=== PATIENT | female | born 1955 | race African-American/Black ===

== ENCOUNTER → 2017-09-27 16:55 | Outpatient (CLI) | payer OTHER, SELFPAY ==
--- NOTE | 2017-09-27 | MM_ITS ---
MM Dig screening mamm BI w/CAD CAD Screening COMPARISON: Digital mammograms with CAD 07/08/2016 and 06/25/2015 INDICATION: There is a history of breast cancer patient maternal aunt. There has been previous biopsy right breast for benign disease TECHNIQUE: Standard CC and MLO images were obtained. R2 CAD reviewed. FINDINGS: There is a diffusely dense and heterogenic parenchymal pattern ascending the sensitivity of mammography. There are multiple scattered benign-appearing calcifications in both breasts most typical of sclerosing adenosis slightly more numerous left breast and right. There is no suspicious lesion and there are no suspicious microcalcifications. IMPRESSION: Stable exam with no suspicious lesion seen BI-RADS Category: 2 Benign Finding(s) RECOMMENDED FOLLOW-UP: 1YR - 1 YEAR FOLLOW-UP (A letter has been sent to the patient regarding results of the study.)
== END ==
PROVIDERS: PCP Family Medicine; Visit Provider Nurse Practitioner Women's Health
DX: Z12.31 Encounter for screening mammogram for malignant neoplasm of breast (principal)
CPT/HCPCS: 77067

== ENCOUNTER → 2018-12-19 15:46 | Outpatient (CLI) | payer OTHER, BC, SELFPAY ==
--- NOTE | 2018-12-19 16:00 | MM_ITS ---
PROCEDURE: MM DIG SCREENING MAMM BI W/CAD CLINICAL INDICATION: SCREENING There is a history of breast cancer in the patient's maternal aunt. There has been a previous biopsy left breast for benign disease. COMPARISON: [facility] DIG MAMM-SCREEN JOSSE from 06/25/2015 [facility] DIG MAMM-SCREEN JOSSE W/CAD from 07/08/2016 [facility] MM Dig screening mamm BI w/CAD from 09/27/2017 TECHNIQUE: Standard CC and MLO images were obtained. R2 CAD reviewed. FINDINGS: Moderate diffuse heterogenic fibroglandular densities are seen throughout both breasts. There are numerous microcalcifications in each breast many of which appear to be typical of sclerosing adenosis. There is a biopsy clip left breast. There is no new or suspicious lesion in either breast and no suspicious microcalcifications. IMPRESSION: Moderate breast density with no suspicious BI-RAD Category: 2 Benign Finding(s) FOLLOW-UP: 1YR 1 Year Follow-up (A letter has been sent to the patient regarding results of the study.) Dictated by: Dr. Rneny Dong MD 12/21/2018 08:[address] Renny Dong MD in [place] 12/21/2018 08:54
== END ==
PROVIDERS: PCP Nurse Practitioner Women's Health; Visit Provider Nurse Practitioner Women's Health
DX: Z12.31 Encounter for screening mammogram for malignant neoplasm of breast (principal)
CPT/HCPCS: 77067

== ENCOUNTER 2020-10-23 17:05 | Emergency (ER) | payer MEDICARE, SELFPAY ==
[2020-10-23 17:06] VITALS: BP 150/91; PULSE 88; RESP 18; TEMP 36.9; O2SAT 97; BMI 41.1
--- NOTE | 2020-10-23 17:38 | HMH.EDGENADL ---
ED Disposition Clinical Impression: Left sided abdominal pain, Bowel habit changes Disposition: Home, Self-Care Condition on Discharge: Good Instructions: DI for Acute Abdominal Pain Additional Instructions: Additional instructions for ABDOMINAL PAIN: See your physician as soon as possible for further evaluation. Return immediately if worsening abdominal pain, vomiting, shortness of breath, fever, vomiting of blood or abdominal distention. Urine culture has been performed, results generally take 2 to 3 days. Follow-up the results of this test with your primary care provider within 2 to 3 days. Referrals: Provider,Referral, [Primary Care Provider] - - Critical Care Critical Care Time: No Attestation: On 10/23/20, the high probability of a clinically significant, sudden or life threatening deterioration of the following system(s) required my full and direct attention, intervention and personal management. The time I documented below is in addition to time spent performing reported procedures but includes the following listed in this critical care notation. Medical Decision Making - Caio Inquiry Pt receiving controlled substance: No Vital Signs: 10/23/20 17:06 10/23/20 18:23 Temperature 98.4 F Temperature Source Oral Pulse Rate 72 Pulse Rate [Right Radial] 88 Respiratory Rate 18 Blood Pressure 168/76 H Blood Pressure [Right Arm] 150/91 H Blood Pressure Mean [Right Arm] 110 Blood Pressure Source [Right Arm] Automatic Cuff Blood Pressure Position [Right Arm] Sitting 02 Sat by Pulse Oximetry 97 99 Oxygen Delivery Method Room Air - Lab Data Lab Results 10/23/20 17:22: WBC 8.3, RBC 4.60, Hgb 14.0, Hct 42.1, MCV 91.7, MCH 30.5, MCHC 33.3, RDW 13.4, Plt Count 253, MPV 7.7, Neut % (Auto) 47.5, Lymph % (Auto) 42.9, [place] % (Auto) 5.3, Eos % (Auto) 3.1, Baso % (Auto) 1.2, Neut # (Auto) 3.9, Lymph # (Auto) 3.6, [place] # (Auto) 0.4, Eos # (Auto) 0.3, Baso # (Auto) 0.1 10/23/20 17:22: Sodium 142, Potassium 3.8, Chloride 105, Carbon Dioxide 28, Anion Gap 12.8, BUN 17, Creatinine 0.70, Estimated Creat Clear 96, Estimated GFR 84, Est GFR ( Amer) 102, Glucose 98, Calcium 9.6, Total Bilirubin 0.5, AST 31, ALT 16, Alkaline Phosphatase 136 H, Total Protein 8.3 H, Albumin 4.8, Globulin 3.5 H, Albumin/Globulin Ratio 1.4, Amylase 58, Lipase 12 L 10/23/20 17:22: Urine Color [place], Urine Appearance Cloudy, Urine pH 6.0, Ur Specific [place] >= 1.030, Urine Protein Negative, Urine Glucose (UA) Negative, Urine Ketones Negative, Urine Blood Negative, Urine Nitrate Negative, Urine Bilirubin Negative, Urine Urobilinogen 1.0, Ur Leukocyte Esterase 1+ A, Urine RBC None, Urine WBC Occasional, Ur Squamous Epith Cells Occasional, Urine Bacteria Trace Result diagrams: 10/23/20 17:22 10/23/20 17:22 Orders (Tests/Meds): ED MEDICATIONS Discontinued Medications Generic Name Dose Route Start Last Admin Trade Name Freq PRN Reason Stop Dose Admin Iopamidol 75 ml 10/23/20 18:14 10/23/20 18:15 Iopamidol-370 (76%);100ml Bottle IV 10/23/20 18:15 75 ml ONCE ONE Administration Sodium Chloride 10 ml 10/23/20 18:14 10/23/20 18:15 Sodium Chloride 0.9% 10ml Syr (Rad Only) IV 10/23/20 18:15 10 ml ONCE ONE Administration ORDERS Category Date Time Status Urine Culture Stat Micro 10/23/20 17:22 Received - CT Data CT Scan: Abdomen, Pelvis Time Received: 18:[address] Reviewed: Yes: I have viewed the radiologist's interpretation Findings Narrative: PROCEDURE INFORMATION: Exam: CT Abdomen And Pelvis With Contrast Exam date and time: 10/23/20 05:40 PM Age: 65 years old Clinical indication: Abdominal pain; Generalized; Prior surgery; Surgery date: 6+ months; Surgery type: Partial hysterectomy; Patient HX: Diffuse abd pain, bowel issues TECHNIQUE: Imaging protocol: Computed tomography of the abdomen and pelvis with contrast. Radiation optimization: All CT scans at this facili
--- NOTE | 2020-10-23 17:40 | CT_ITS ---
PROCEDURE INFORMATION: Exam: CT Abdomen And Pelvis With Contrast Exam date and time: 10/23/20 05:40 PM Age: 65 years old Clinical indication: Abdominal pain; Generalized; Prior surgery; Surgery date: 6+ months; Surgery type: Partial hysterectomy; Patient HX: Diffuse abd pain, bowel issues TECHNIQUE: Imaging protocol: Computed tomography of the abdomen and pelvis with contrast. Radiation optimization: All CT scans at this facility use at least one of these dose optimization techniques: automated exposure control; mA and/or kV adjustment per patient size (includes targeted exams where dose is matched to clinical indication); or iterative reconstruction. Contrast material: ISOVUE; Contrast volume: 75 ml; Contrast route: IV; COMPARISON: CR CXR2V XR chest 2V 12/17/17 02:19 PM FINDINGS: Tubes, catheters and devices: None noted. Lungs: Lung bases appear clear. Heart: No significant coronary calcifications. No cardiomegaly. No significant pericardial effusion. Liver: Normal. No mass. Gallbladder and bile ducts: Normal. No calcified stones. No ductal dilation. Pancreas: Normal. No ductal dilation. Spleen: Normal. No splenomegaly. Adrenal glands: Normal. No mass. Kidneys and ureters: Normal. No hydronephrosis. Stomach and bowel: Unremarkable. No obstruction. No mucosal thickening. Appendix: Appendix is well visualized. No evidence of appendicitis. Intraperitoneal space: Unremarkable. No free air. No significant fluid collection. Retroperitoneal space: No significant retroperitoneal inflammatory changes are noted. Vasculature: Unremarkable. No abdominal aortic aneurysm. Lymph nodes: Unremarkable. No enlarged lymph nodes. Urinary bladder: Unremarkable as visualized. Reproductive: Unremarkable as visualized. Bones/joints: Right hip arthroplasty. Severe osteoarthritic changes left hip. Severely degenerated disc at L1-L2. Prior fusion L2-L3. Vacuum disc L3-L4 and L4-L5. No acute fracture. Soft tissues: Unremarkable. IMPRESSION: 1. Right hip arthroplasty. Severe osteoarthritic changes left hip. 2. Previous fusion L2-L3. 3. Vacuum discs at L1-L2, L3-L4, and L4-L5.
[2020-10-23 17:42] LABS: Microscopic, Urine URINE MICROSCOPIC (MICROSCOPIC)
[2020-10-23 17:45] LABS: Appearance,Urine CLOUDY (Clear); Basophils # 0.1 K/mm3 (0-0.2); Basophils % 1.2 % (0.1-2.0); Bilirubin,Urine Negative (Negative); Blood, Urine Negative (Negative); Color,Urine AMBER (Yellow); Eosinophils # 0.3 K/mm3 (0.0-0.4); Eosinophils % 3.1 % (0.1-12.0); Glucose,Urine (UA) Negative (Negative); Hematocrit 42.1 % (37.0-47.0); Ketones,Urine Negative (Negative); Leukocyte Esterase,Urine 1+ (Negative); Lymphocytes # 3.6 K/mm3 (0.7-4.5); Lymphocytes % 42.9 % (10-50); Mean Corpuscular HGB Conc 33.3 g/dL (31.8-35.4); Mean Corpuscular Hemoglobin 30.5 pg (27.0-31.2); Mean Corpuscular Volume 91.7 fl (81-99); Mean Platelet Volume 7.7 fl (7.4-10.4); Monocytes # 0.4 K/mm3 (0.1-1.0); Monocytes % 5.3 % (1.7-9.3); Neutrophils # 3.9 K/mm3 (1.8-7.8); Neutrophils % 47.5 % (37.0-80.0); Nitrate,Urine Negative (Negative); Platelet Count 253 K/mm3 (142-424); Protein,Urine Negative (Negative); Red Cell Distribution Width 13.4 % (11.5-17.5); Specific Gravity, Urine >= 1.030 (1.005-1.030); White Blood Count 8.3 K/mm3 (4.8-10.8)
[2020-10-23 17:47] LABS: Chloride 105 mmol/L (98-107); Sodium 142 mmol/L (136-145)
[2020-10-23 17:48] LABS: Potassium 3.8 mmoL/L (3.5-5.1)
[2020-10-23 17:50] LABS: Alanine Aminotransferase 16 U/L (12-78); Amylase 58 U/L (30-110); Anion Gap 12.8 mEq/L (5-15); Aspartate Amino Transferase 31 U/L (14-36); Blood Urea Nitrogen 17 mg/dl (7-17); Carbon Dioxide 28 mmol/L (22.0-30.0); Creatinine Clearance Estimated 96 mL/min (50-200); Estimated Glomerular Filt Rate 84 ml/min (>60); GFR (African American) 102 ML/MIN (>60)
[2020-10-23 17:51] LABS: Albumin Level 4.8 g/dl (3.5-5.0); Albumin/Globulin Ratio 1.4 (1.1-1.8); Alkaline Phosphatase 136 U/L (38-126); Bilirubin,Total 0.5 mg/dl (0.2-1.3); Calcium 9.6 mg/dl (8.4-10.2); Globulin 3.5 g/dL (1.3-3.2); Glucose 98 mg/dl (74-100); Lipase 12 U/L (23-300); Total Protein,Serum 8.3 g/dl (6.3-8.2)
[2020-10-23 17:56] LABS: Bacteria,Urine Trace /lpf; Squamous Epithelial Cell,Urine Occasional #/hpf (0-5); WBC,Urine Occasional #/hpf (0-3)
[2020-10-23 18:23] VITALS: BP 168/76; PULSE 72; O2SAT 99
[2020-10-23 19:14] VITALS: BP 154/74; PULSE 74; RESP 16; TEMP 36.9; O2SAT 98
== END 2020-10-23 19:17 | disposition home or self-care (01) ==
PROVIDERS: Emergency Provider Emergency Medicine
DX: R10.32 Left lower quadrant pain (principal); R10.12 Left upper quadrant pain; Z96.641 Presence of right artificial hip joint
CPT/HCPCS: 74177; 80053; 81001; 82150; 83690; 85025; 87086; 99283; Q9967

== ENCOUNTER 2020-12-10 14:31 | Emergency (ER) | payer MEDICARE, SELFPAY ==
[2020-12-10 14:35] VITALS: BP 149/89; PULSE 94; RESP 18; TEMP 37; O2SAT 98; BMI 41.1
--- NOTE | 2020-12-10 14:59 | HMH.EDUTC ---
[facility] [place] Disposition Clinical Impression: Sinusitis Qualifiers: Sinusitis location: unspecified location Chronicity: unspecified Qualified Code(s): J32.9 - Chronic sinusitis, unspecified Disposition: Home, Self-Care Condition on Discharge: Good Instructions: Sinusitis, DI for Sinusitis Additional Instructions: *Monitor Temp, Over the counter Motrin or Tylenol as directed/as needed Tylenol every 4 hours and Motrin every 6 hours (as long as your family doctor has told you that you can take it) for fever or pain. and straight to ER if unable to lower temp less than 101.0 after medication given *Warm salt water gargles may help to soothe the throat *Throat Lozenges *Warm fluids like tea with honey may help to soothe the throat *Sleep elevated *Humidifier/Vaporizer Take medication as prescribed Return if needed Straight to ER if any life threatening symptoms Follow up IMMEDIATELY for new or worsening symptoms or no Noticeable improvement over the next 48-72 hours. 911 for difficulty breathing or swallowing Prescriptions: Amoxicillin/Potassium Clav [Augmentin 875-125 Tablet] 1 tab PO Q12H 7 Days #14 tab Transmission Status: Pending to [id number] predniSONE [Deltasone 10mg tablet] 10 mg PO BID 5 Days #10 tab Transmission Status: Pending to [id number] Referrals: Provider,Referral, MD [Primary Care Provider] - As needed Time of Disposition: 15:18 Medical Decision Making - Caio Inquiry Pt receiving controlled substance: No Caio was queried for this patient: No Vital Signs: 12/10/20 14:35 Temperature 98.6 F Temperature Source Oral Pulse Rate [Right Brachial] 94 H Respiratory Rate 18 Blood Pressure [Right Arm] 149/89 H Blood Pressure Mean [Right Arm] 109 Blood Pressure Source [Right Arm] Automatic Cuff Blood Pressure Position [Right Arm] Sitting 02 Sat by Pulse Oximetry 98 Oxygen Delivery Method Room Air Medical Decision Narrative: Patient states that she has taken augmentin and prednisone without complications or reactions [facility] [place] HPI - General Stated complaint: possible sinus infection Time Seen by Provider: 12/10/20 14:59 Mode of Arrival: Ambulatory Source of Information: Patient Limitations: No Limitations Description of Symptoms (Recalled from Triage Doc. by RN): PATIENT C/O RUNNY NOSE AND WATERY EYES X 1 WEEK HEENT Symptoms (Recalled from RN notes): Yes Resp Symptoms (Recalled from RN notes): No Skin Symptoms (Recalled from RN notes): No MS Symptoms (Recalled from RN notes): No Functional Status (Recalled from RN notes): WNL - History of Present Illness Provider Complaint: Patient states that she thinks she may have a sinus infection States that she has been having sinus congestion and pressure for over a week with watery eyes and over all not feeling well so she came in today to get checked when she wasnt feeling any better - Related Data Home Medications Medication Instructions Recorded Confirmed Albuterol Sulfate [Proair Hfa 2 puffs IH Q6H PRN 10/26/17 12/17/17 90mcg/puff Inh] Budesonide/Formoterol Fumarate 2 inh IH BID 10/26/17 12/17/17 [Symbicort 160-4.5 Mcg Inhaler] Fluticasone Propionate [Flovent 2 spr IH DAILY 10/26/17 12/17/17 Diskus] Gabapentin [Gabapentin 300mg Cap] 300 mg PO BID 10/26/17 12/17/17 Indomethacin 25 mg PO TID 10/26/17 12/17/17 Miconazole Nitrate [Athlete's Foot] 71 gm TP DAILY 10/26/17 12/17/17 Morphine Sulfate [Arymo ER] 15 mg PO BID 10/26/17 12/17/17 Multivitamin [Multi-Vitamin Plain] 1 each PO DAILY 10/26/17 12/17/17 Omeprazole [Omeprazole 20mg 20 mg PO BID 10/26/17 12/17/17 Capsule] Sertraline HCl [Zoloft 50mg tablet] 50 mg PO DAILY 10/26/17 12/17/17 atenoloL [Atenolol 50mg Tab] 50 mg PO DAILY 10/26/17 12/17/17 lidocaine HCL [Lidocaine 2% jelly 1 applic TOPICAL DAILY 10/26/17 12/17/17 5mL tube] Previous Rx's Medication Instructions Recorded Benzonatate [Tessalon Perle 100mg 100 mg PO TID #30 cap 12/10/17 Cap]
[2020-12-10 15:25] VITALS: BP 149/89; PULSE 94; RESP 18; TEMP 37; O2SAT 98
== END 2020-12-10 15:30 | disposition home or self-care (01) ==
PROVIDERS: Emergency Provider Nurse Practitioner
DX: J32.9 Chronic sinusitis, unspecified (principal); Z96.641 Presence of right artificial hip joint; Z79.899 Other long term (current) drug therapy
CPT/HCPCS: G0463; 99202

== ENCOUNTER → 2021-02-10 12:59 | Outpatient (CLI) | payer MEDICARE, SELFPAY ==
--- NOTE | 2021-02-10 13:03 | MM_ITS ---
PROCEDURE INFORMATION: Exam: MG Bilateral Screening 3D Mammography Exam date and time: 02/10/2021 1:03 PM Age: 65 years old Clinical indication: Encounter for screening mammogram for malignant neoplasm of breast . Family history of breast carcinoma. TECHNIQUE: Imaging protocol: Bilateral screening tomosynthesis and 2D mammography including computer-aided detection (CAD) when performed. COMPARISON: 1. MG MM DIG SCREENING MAMM BI W/CAD 12/19/2018 4:34 PM 2. MG [facility] MM Dig screening mamm BI w/CAD 09/27/2017 5:05 PM 3. MG [facility] DIG MAMM-SCREEN JOSSE W/CAD 07/08/2016 4:41 PM FINDINGS: MAMMOGRAPHY: Breast composition: The breasts are heterogeneously dense, which may obscure small masses. Mass: No suspicious masses. Architectural distortion: No suspicious distortion. Calcifications: No suspicious calcifications. Asymmetric density: None. Skin thickening: None. Axillary adenopathy: None. IMPRESSION: No mammographic evidence of malignancy. Annual screening is recommended unless otherwise clinically indicated. ASSESSMENT: BI-RADS Category 1: Negative
== END ==
PROVIDERS: PCP Nurse Practitioner Women's Health; Visit Provider Nurse Practitioner Women's Health
DX: Z12.31 Encounter for screening mammogram for malignant neoplasm of breast (principal)
CPT/HCPCS: 77063; 77067

== ENCOUNTER 2022-02-21 11:00 | Emergency (ER) | payer MEDICARE, OTHER, SELFPAY ==
[2022-02-21 11:25] VITALS: BP 154/88; PULSE 91; RESP 16; TEMP 36.7; O2SAT 95; BMI 44.6
--- NOTE | 2022-02-21 11:29 | EXP.UTC ---
Discharge Plan Disposition Patient Disposition: Home, Self-Care Condition: Good Prescriptions Prescriptions: New amoxicillin-pot clavulanate 875-125 mg Tablet 1 tab PO Q12H 7 Days Qty: 14 0RF No Action diltiazem HCl 240 mg capsule,extended release 24hr 240 mg PO DAILY Label Comments: TAKE 1 CAPSULE BY MOUTH ONCE DAILY hydrochlorothiazide 25 mg Tablet 25 mg PO DAILY Flovent Diskus 50 MCG blister with device 2 spr inhalation DAILY indomethacin 25 MG capsule 25 mg PO TID gabapentin 300 MG capsule 300 mg PO BID omeprazole 20 MG capsule,delayed release(DR/EC) 20 mg PO BID albuterol sulfate [ProAir HFA] 8.5 GM HFA aerosol inhaler 2 puffs inhalation Q6H PRN (Reason: Shortness Of Breath) multivitamin with folic acid [Tab-A-Liang] 1 EACH tablet 1 ea PO DAILY Arymo ER 15 MG tablet,oral only,extnd release 15 mg PO BID Referrals Follow up/Referrals: Provider,Referral, MD [Primary Care Provider] - See instructions Activity Restrictions/Add. Instructions Additional Instructions/Restrictions: *Monitor Temp, Over the counter Motrin or Tylenol as directed/as needed Tylenol every 4 hours and Motrin every 6 hours (as long as your family doctor has told you that you can take it) for fever or pain. and straight to ER if unable to lower temp less than 101.0 after medication given *Warm salt water gargles may help to soothe the throat *Throat Lozenges? *Warm fluids like tea with honey may help to soothe the throat? *Sleep elevated *Humidifier/Vaporizer Take medication as prescribed Follow up IMMEDIATELY for new or worsening symptoms or no Noticeable improvement over the next 48-72 hours. 911 for difficulty breathing or swallowing Clinical Impressions Clinical Impression: Sinusitis Stand Alone Forms Stand Alone Forms: Work/School Release Instructions Patient Instructions: DI for Sinusitis, Sinusitis Discharge ED Provider: Michelle Mcneal [facility] General Stated complaint: head congestion Mode of Arrival: Ambulatory Source of Information: Patient Limitations: No Limitations Time Seen by Provider: 02/21/22 11:29 Description of Symptoms (Recalled from Triage Doc. by RN): pt comes in with c/o head congestion and cough since tuesday. HEENT Symptoms (Recalled from RN notes): Yes Resp Symptoms (Recalled from RN notes): Yes Skin Symptoms (Recalled from RN notes): No MS Symptoms (Recalled from RN notes): No Functional Status (Recalled from RN notes): n/a History of Present Illness Provider Complaint: Patient states that she has been having sinus congestion and pressure along with cough since Tuesday States that she has been feeling like her head is all congested and the discharge is thick States that it is draining in the back of her throat and making her cough State that she feels like she may have a bad sinus infection Related Data Home Medications Medication Instructions Recorded Confirmed albuterol sulfate 90 mcg/actuation 2 puffs inhalation Q6H PRN 10/26/17 02/21/22 aerosol inhaler (ProAir HFA) Shortness Of Breath fluticasone propionate 50 2 spr inhalation DAILY ALLERGIES 10/26/17 02/21/22 mcg/actuation blister powder for inhalation (Flovent Diskus) gabapentin 300 mg capsule 300 mg PO BID Pain 10/26/17 02/21/22 indomethacin 25 mg capsule 25 mg PO TID Arthritis 10/26/17 02/21/22 morphine 15 mg tablet, crush 15 mg PO BID Pain 10/26/17 02/21/22 resistant, extended release (Arymo ER) multivitamin with folic acid 400 1 ea PO DAILY Supplement 10/26/17 02/21/22 mcg tablet (Tab-A-Liang) omeprazole 20 mg capsule,delayed 20 mg PO BID GERD 10/26/17 02/21/22 release diltiazem HCl 240 mg 240 mg PO DAILY High blood pressure 02/21/22 02/21/22 capsule,extended release 24 hr hydrochlorothiazide 25 mg tablet 25 mg PO DAILY High blood pressure 02/21/22 02/21/22 Previous Rx's Medication Instructions Recorded amoxicillin
[2022-02-21 11:51] VITALS: BP 154/88; PULSE 91; RESP 16; TEMP 36.7
== END 2022-02-21 11:52 | disposition home or self-care (01) ==
PROVIDERS: Emergency Provider Nurse Practitioner
DX: J32.9 Chronic sinusitis, unspecified (principal)
CPT/HCPCS: 99212; G0463

== ENCOUNTER 2022-03-10 12:24 | Emergency (ER) | payer MEDICARE, OTHER, SELFPAY ==
--- NOTE | 2022-03-10 12:35 | EXP.UTC ---
Discharge Plan Disposition Patient Disposition: Home, Self-Care Condition: Good Prescriptions Prescriptions: New benzonatate [benzonatate] 100 mg capsule 100 mg PO TIDP PRN (Reason: Cough) Qty: 30 0RF methylprednisolone 4 mg Tablets,Dose Pack 4 mg PO DIRECTED Qty: 21 0RF cefdinir 300 mg capsule 300 mg PO BID Qty: 20 0RF No Action diltiazem HCl 240 mg capsule,extended release 24hr 240 mg PO DAILY Label Comments: TAKE 1 CAPSULE BY MOUTH ONCE DAILY hydrochlorothiazide 25 mg Tablet 25 mg PO DAILY amoxicillin-pot clavulanate 875-125 mg Tablet 1 tab PO Q12H 7 Days Qty: 14 0RF Flovent Diskus 50 MCG blister with device 2 spr inhalation DAILY indomethacin 25 MG capsule 25 mg PO TID gabapentin 300 MG capsule 300 mg PO BID omeprazole 20 MG capsule,delayed release(DR/EC) 20 mg PO BID albuterol sulfate [ProAir HFA] 8.5 GM HFA aerosol inhaler 2 puffs inhalation Q6H PRN (Reason: Shortness Of Breath) multivitamin with folic acid [Tab-A-Liang] 1 EACH tablet 1 ea PO DAILY Arymo ER 15 MG tablet,oral only,extnd release 15 mg PO BID Referrals Follow up/Referrals: Provider,Referral, MD [Primary Care Provider] - See instructions Activity Restrictions/Add. Instructions Additional Instructions/Restrictions: Drink plenty of fluids. Take tylenol or ibuprofen for pain or fever. Take the medications as directed. Follow up with your regular doctor. GO TO THE ER FOR ANY WORSENING SYMPTOMS Clinical Impressions Clinical Impression: Acute bronchitis, Sinusitis Instructions Patient Instructions: DI for Sinusitis, DI for Acute Bronchitis Discharge ED Provider: Nghia Sullivan [facility] General Stated complaint: drainage, cough Time Seen by Provider: 03/10/22 12:27 History of Present Illness Provider Complaint: She states that for the past 1 week she has had sinus congestion, productive cough, and malaise. Related Data Home Medications Medication Instructions Recorded Confirmed albuterol sulfate 90 mcg/actuation 2 puffs inhalation Q6H PRN 10/26/17 02/21/22 aerosol inhaler (ProAir HFA) Shortness Of Breath fluticasone propionate 50 2 spr inhalation DAILY ALLERGIES 10/26/17 02/21/22 mcg/actuation blister powder for inhalation (Flovent Diskus) gabapentin 300 mg capsule 300 mg PO BID Pain 10/26/17 02/21/22 indomethacin 25 mg capsule 25 mg PO TID Arthritis 10/26/17 02/21/22 morphine 15 mg tablet, crush 15 mg PO BID Pain 10/26/17 02/21/22 resistant, extended release (Arymo ER) multivitamin with folic acid 400 1 ea PO DAILY Supplement 10/26/17 02/21/22 mcg tablet (Tab-A-Liang) omeprazole 20 mg capsule,delayed 20 mg PO BID GERD 10/26/17 02/21/22 release diltiazem HCl 240 mg 240 mg PO DAILY High blood pressure 02/21/22 02/21/22 capsule,extended release 24 hr hydrochlorothiazide 25 mg tablet 25 mg PO DAILY High blood pressure 02/21/22 02/21/22 Previous Rx's Medication Instructions Recorded amoxicillin 875 mg-potassium 1 tab PO Q12H 7 days #14 tabs 02/21/22 clavulanate 125 mg tablet benzonatate 100 mg capsule 100 mg PO TIDP PRN Cough #30 caps 03/10/22 cefdinir 300 mg capsule 300 mg PO BID #20 caps 03/10/22 methylprednisolone 4 mg tablets in 4 mg PO DIRECTED #21 tabs 03/10/22 a dose pack Allergies Allergy/AdvReac Type Severity Reaction Status Date / Time No Known Allergies Allergy Verified 03/10/22 12:55 [facility] Disclaimer: The information contained in this section may have been updated after the patient was seen, as this information can be updated by other users. Social History Smoking Status: Never smoker alcohol intake: never current occupational status: retired Travel in the last 8 weeks: None ROS Obtained: Yes All systems reviewed & no additional complaints except as documented Constitutional Constitutional: Reports poor
[2022-03-10 12:45] VITALS: BP 154/84; RESP 19; TEMP 36.9; O2SAT 94; BMI 44.6
[2022-03-10 13:26] VITALS: BP 154/84; PULSE 86; RESP 19; TEMP 36.9; O2SAT 94
== END 2022-03-10 13:26 | disposition home or self-care (01) ==
PROVIDERS: Emergency Provider Nurse Practitioner Family
DX: J20.9 Acute bronchitis, unspecified (principal); J32.9 Chronic sinusitis, unspecified
CPT/HCPCS: 99212; G0463

== ENCOUNTER 2022-09-13 14:28 | Emergency (ER) | payer MEDICARE, OTHER, SELFPAY ==
[2022-09-13 14:29] VITALS: BP 162/94; PULSE 93; RESP 18; TEMP 36.6; O2SAT 95; BMI 41.8
--- NOTE | 2022-09-13 14:49 | EXP.UTC ---
Discharge Plan Disposition Patient Disposition: Home, Self-Care Condition: Good Prescriptions Prescriptions: New amoxicillin [amoxicillin] 875 mg tablet 875 mg PO Q12H Qty: 20 0RF methylprednisolone 4 mg Tablets,Dose Pack 4 mg PO DIRECTED Qty: 21 0RF ondansetron 4 mg Tablet,Disintegrating 4 mg PO Q8H PRN (Reason: Nausea) Qty: 12 0RF No Action diltiazem HCl 240 mg capsule,extended release 24hr 240 mg PO DAILY Patient Comments: TAKE 1 CAPSULE BY MOUTH ONCE DAILY hydrochlorothiazide 25 mg Tablet 25 mg PO DAILY amoxicillin-pot clavulanate 875-125 mg Tablet 1 tab PO Q12H 7 Days Qty: 14 0RF Flovent Diskus 50 MCG blister with device 2 spr inhalation DAILY indomethacin 25 MG capsule 25 mg PO TID gabapentin 300 MG capsule 300 mg PO BID omeprazole 20 MG capsule,delayed release(DR/EC) 20 mg PO BID albuterol sulfate [ProAir HFA] 8.5 GM HFA aerosol inhaler 2 puffs inhalation Q6H PRN (Reason: Shortness Of Breath) multivitamin with folic acid [Tab-A-Liang] 1 EACH tablet 1 ea PO DAILY Arymo ER 15 MG tablet,oral only,extnd release 15 mg PO BID benzonatate [benzonatate] 100 mg capsule 100 mg PO TIDP PRN (Reason: Cough) Qty: 30 0RF methylprednisolone 4 mg Tablets,Dose Pack 4 mg PO DIRECTED Qty: 21 0RF cefdinir 300 mg capsule 300 mg PO BID Qty: 20 0RF Referrals Follow up/Referrals: Provider,Referral, MD [Primary Care Provider] - See instructions Clinical Impressions Clinical Impression: Sinusitis Instructions Patient Instructions: Sinusitis, DI for Sinusitis Discharge ED Provider: Nghia Sullivan [facility] [place] HPI General Stated complaint: congestion, h/a Mode of Arrival: Ambulatory Source of Information: Patient Limitations: No Limitations Time Seen by Provider: 09/13/22 14:49 Description of Symptoms (Recalled from Triage Doc. by RN): Patient reports possible sinus infection and diarrhea since Tuesday. HEENT Symptoms (Recalled from RN notes): Yes Resp Symptoms (Recalled from RN notes): No Skin Symptoms (Recalled from RN notes): No MS Symptoms (Recalled from RN notes): No Functional Status (Recalled from RN notes): wnl History of Present Illness Provider Complaint: She states that for the past 5 days she has had sinus congestion, scratchy sore throat and diarrhea. Related Data Home Medications Medication Instructions Recorded Confirmed albuterol sulfate 90 mcg/actuation 2 puffs inhalation Q6H PRN 10/26/17 02/21/22 aerosol inhaler (ProAir HFA) Shortness Of Breath fluticasone propionate 50 2 spr inhalation DAILY ALLERGIES 10/26/17 02/21/22 mcg/actuation blister powder for inhalation (Flovent Diskus) gabapentin 300 mg capsule 300 mg PO BID Pain 10/26/17 02/21/22 indomethacin 25 mg capsule 25 mg PO TID Arthritis 10/26/17 02/21/22 morphine 15 mg tablet, crush 15 mg PO BID Pain 10/26/17 02/21/22 resistant, extended release (Arymo ER) multivitamin with folic acid 400 1 ea PO DAILY Supplement 10/26/17 02/21/22 mcg tablet (Tab-A-Liang) omeprazole 20 mg capsule,delayed 20 mg PO BID GERD 10/26/17 02/21/22 release diltiazem HCl 240 mg 240 mg PO DAILY High blood pressure 02/21/22 02/21/22 capsule,extended release 24 hr hydrochlorothiazide 25 mg tablet 25 mg PO DAILY High blood pressure 02/21/22 02/21/22 Previous Rx's Medication Instructions Recorded amoxicillin 875 mg-potassium 1 tab PO Q12H 7 days #14 tabs 02/21/22 clavulanate 125 mg tablet benzonatate 100 mg capsule 100 mg PO TIDP PRN Cough #30 caps 03/10/22 cefdinir 300 mg capsule 300 mg PO BID #20 caps 03/10/22 methylprednisolone 4 mg tablets in 4 mg PO DIRECTED #21 tabs 03/10/22 a dose pack amoxicillin 875 mg tablet 875 mg PO Q12H #20 tabs 09/13/22 methylprednisolone 4 mg tablets in 4 mg PO DIRECTED #21 tabs 09/13/22 a dose pack ondansetron 4 mg disintegrating 4 mg PO Q8H PRN Nausea #12 tabs 09/13/22 tablet Allergies Allergy/A
[2022-09-13 15:14] VITALS: BP 162/94; PULSE 93; RESP 18; TEMP 36.6; O2SAT 95
== END 2022-09-13 15:15 | disposition home or self-care (01) ==
PROVIDERS: Emergency Provider Nurse Practitioner Family
DX: J01.90 Acute sinusitis, unspecified (principal); R19.7 Diarrhea, unspecified
CPT/HCPCS: 99212; 99214; G0463

== ENCOUNTER 2022-12-15 13:05 | Emergency (ER) | payer MEDICARE, OTHER, SELFPAY ==
[2022-12-15 13:10] VITALS: BP 159/77; PULSE 87; RESP 18; TEMP 36.7; O2SAT 97; BMI 43.9
[2022-12-15 13:42] LABS: UTC Influenza A Antigen Negative (Negative)
[2022-12-15 13:43] LABS: UTC Influenza B Antigen Negative (Negative)
--- NOTE | 2022-12-15 13:45 | EXP.UTC ---
Discharge Plan Disposition Patient Disposition: Home, Self-Care Condition: Good Prescriptions Prescriptions: New cephalexin [cephalexin] 500 mg tablet 500 mg PO BID 7 Days Qty: 14 0RF No Action diltiazem HCl 240 mg capsule,extended release 24hr 240 mg PO DAILY Patient Comments: TAKE 1 CAPSULE BY MOUTH ONCE DAILY hydrochlorothiazide 25 mg Tablet 25 mg PO DAILY amoxicillin-pot clavulanate 875-125 mg Tablet 1 tab PO Q12H 7 Days Qty: 14 0RF amoxicillin [amoxicillin] 875 mg tablet 875 mg PO Q12H Qty: 20 0RF methylprednisolone 4 mg Tablets,Dose Pack 4 mg PO DIRECTED Qty: 21 0RF ondansetron 4 mg Tablet,Disintegrating 4 mg PO Q8H PRN (Reason: Nausea) Qty: 12 0RF Flovent Diskus 50 MCG blister with device 2 spr inhalation DAILY indomethacin 25 MG capsule 25 mg PO TID gabapentin 300 MG capsule 300 mg PO BID omeprazole 20 MG capsule,delayed release(DR/EC) 20 mg PO BID albuterol sulfate [ProAir HFA] 8.5 GM HFA aerosol inhaler 2 puffs inhalation Q6H PRN (Reason: Shortness Of Breath) multivitamin with folic acid [Tab-A-Liang] 1 EACH tablet 1 ea PO DAILY Arymo ER 15 MG tablet,oral only,extnd release 15 mg PO BID benzonatate [benzonatate] 100 mg capsule 100 mg PO TIDP PRN (Reason: Cough) Qty: 30 0RF methylprednisolone 4 mg Tablets,Dose Pack 4 mg PO DIRECTED Qty: 21 0RF cefdinir 300 mg capsule 300 mg PO BID Qty: 20 0RF Referrals Follow up/Referrals: Provider,Referral, MD [Primary Care Provider] - See instructions Activity Restrictions/Add. Instructions Additional Instructions/Restrictions: Monitor temperature. Seek treatment if fever develops. Follow-up immediately if new or worse symptoms worsen or no noticeable improvement over 48 hours. Increase fluids such as water, Gatorade, Powerade, juice or Pedialyte with limited formula/dietary in children No food is okay as long as you are drinking. Once ready to eat start bland such as bananas, rice, applesauce, toast. Contagious until no diarrhea, vomiting, fever times 48 hours without medication Avoid antidiarrheals unless told otherwise. Best to let the virus run its course. Follow-up immediately for new or worsening symptoms or no noticeable improvement over the next 48 hours. Clinical Impressions Clinical Impression: Acute UTI Diarrhea Qualifiers: Diarrhea type: unspecified type Qualified Code(s): R19.7 - Diarrhea, unspecified Instructions Patient Instructions: Diarrhea [facility]charge [facility] [place] General Stated complaint: dizzy, diarrhea and vomiting Mode of Arrival: Ambulatory Source of Information: Patient Limitations: No Limitations Time Seen by Provider: 12/15/22 13:45 Description of Symptoms (Recalled from Triage Doc. by RN): chills, diarrhea, vomiting, and stomach cramps HEENT Symptoms (Recalled from RN notes): Yes Resp Symptoms (Recalled from RN notes): No Skin Symptoms (Recalled from RN notes): No MS Symptoms (Recalled from RN notes): No Functional Status (Recalled from RN notes): n/a History of Present Illness Provider Complaint: 67 yr old female presents for nausea,vomiting,diarrhea since tuesday. no abd pain, pt states she felt fine until she went to a retreat this weekend and has not felt well since Related Data Home Medications Medication Instructions Recorded Confirmed albuterol sulfate 90 mcg/actuation 2 puffs inhalation Q6H PRN 10/26/17 02/21/22 aerosol inhaler (ProAir HFA) Shortness Of Breath fluticasone propionate 50 2 spr inhalation DAILY ALLERGIES 10/26/17 02/21/22 mcg/actuation blister powder for inhalation (Flovent Diskus) gabapentin 300 mg capsule 300 mg PO BID Pain 10/26/17 02/21/22 indomethacin 25 mg capsule 25 mg PO TID Arthritis 10/26/17 02/21/22 morphine 15 mg tablet, crush 15 mg PO BID Pain 10/26/17 02/21/22 resistant, extended release (Arymo ER) multivitamin with folic acid 40
[2022-12-15 14:50] LABS: Microscopic, Urine URINE MICROSCOPIC (MICROSCOPIC)
[2022-12-15 15:31] LABS: Appearance,Urine CLEAR (Clear); Blood, Urine Negative (Negative); Color,Urine YELLOW (Yellow); Glucose,Urine (UA) Negative (Negative); Ketones,Urine 2+ (Negative); Leukocyte Esterase,Urine Negative (Negative); Nitrate,Urine Negative (Negative); Protein,Urine 1+ (Negative)
[2022-12-15 15:32] LABS: Bilirubin,Urine 1+ (Negative)
[2022-12-15 15:37] LABS: Bacteria,Urine 2+ /lpf; Mucus,Urine Trace /lpf
[2022-12-15 15:38] LABS: Yeast,Urine Occasional /lpf
[2022-12-15 15:46] VITALS: BP 159/77; PULSE 87; RESP 18; TEMP 36.7; O2SAT 97
== END 2022-12-15 15:46 | disposition home or self-care (01) ==
PROVIDERS: Emergency Provider Nurse Practitioner Family
DX: N39.0 Urinary tract infection, site not specified (principal); R19.7 Diarrhea, unspecified; R11.2 Nausea with vomiting, unspecified
CPT/HCPCS: 81001; 87086; 87635; 87804; 99212; 99214; G0463

== ENCOUNTER 2023-06-16 15:14 | Emergency (ER) | payer MEDICARE, OTHER, SELFPAY ==
[2023-06-16 15:30] VITALS: BP 149/72; PULSE 84; RESP 19; TEMP 36.7; O2SAT 97; BMI 44.2
--- NOTE | 2023-06-16 15:47 | ED_ITS ---
Discharge Plan Disposition Patient Disposition: Home, Self-Care Condition: Good Prescriptions Prescriptions: New promethazine-DM 6.25-15 mg/5 mL Syrup 5 ml PO Q6H PRN (Reason: Cough) Qty: 240 0RF azithromycin [Zithromax] 250 mg tablet 250 mg PO UD DOSE PK Qty: 6 0RF Rx Instructions: Take two (2) tablets today, then one (1) tablet days #2 thru #5 methylprednisolone 4 mg Tablets,Dose Pack 4 mg PO DIRECTED 6 Days Qty: 21 0RF Rx Instructions: Take 1 pack as directed for 6 days guaifenesin [Mucinex] 600 mg tablet extended release 12hr 600 - 1,200 mg PO BIDP PRN (Reason: Congestion) Qty: 30 0RF No Action diltiazem HCl 240 mg capsule,extended release 24hr 240 mg PO DAILY Patient Comments: TAKE 1 CAPSULE BY MOUTH ONCE DAILY hydrochlorothiazide 25 mg Tablet 25 mg PO DAILY amoxicillin-pot clavulanate 875-125 mg Tablet 1 tab PO Q12H 7 Days Qty: 14 0RF amoxicillin [amoxicillin] 875 mg tablet 875 mg PO Q12H Qty: 20 0RF methylprednisolone 4 mg Tablets,Dose Pack 4 mg PO DIRECTED Qty: 21 0RF ondansetron 4 mg Tablet,Disintegrating 4 mg PO Q8H PRN (Reason: Nausea) Qty: 12 0RF cephalexin [cephalexin] 500 mg tablet 500 mg PO BID 7 Days Qty: 14 0RF Flovent Diskus 50 MCG blister with device 2 spr inhalation DAILY indomethacin 25 MG capsule 25 mg PO TID gabapentin 300 MG capsule 300 mg PO BID omeprazole 20 MG capsule,delayed release(DR/EC) 20 mg PO BID albuterol sulfate [ProAir HFA] 8.5 GM HFA aerosol inhaler 2 puffs inhalation Q6H PRN (Reason: Shortness Of Breath) multivitamin with folic acid [Tab-A-Liang] 1 EACH tablet 1 ea PO DAILY Arymo ER 15 MG tablet,oral only,extnd release 15 mg PO BID benzonatate [benzonatate] 100 mg capsule 100 mg PO TIDP PRN (Reason: Cough) Qty: 30 0RF methylprednisolone 4 mg Tablets,Dose Pack 4 mg PO DIRECTED Qty: 21 0RF cefdinir 300 mg capsule 300 mg PO BID Qty: 20 0RF Referrals Follow up/Referrals: Provider,Referral, MD [Primary Care Provider] - See instructions Activity Restrictions/Add. Instructions Additional Instructions/Restrictions: Drink plenty of fluids. Take tylenol or ibuprofen for pain or fever. Take the medications as directed. Follow up with your regular doctor. GO TO THE ER FOR ANY WORSENING SYMPTOMS The cough medication (promethazine dm) will make you drowsy, so don't drive or operate heavy machinery after taking it. Clinical Impressions Clinical Impression: Sinusitis Instructions Patient Instructions: DI for Sinusitis, Sinusitis Discharge ED Provider: Nghia Sullivan [facility] [place] HPI General Stated complaint: headache,cough,runny nose Mode of Arrival: Ambulatory Source of Information: Patient Limitations: No Limitations Time Seen by Provider: 06/16/23 15:41 Description of Symptoms (Recalled from Triage Doc. by RN): PATIENT C/O COUGH WITH PHLEGM AND SNEEZING X 3 WEEKS AND A HEADACHE THIS MORNING HEENT Symptoms (Recalled from RN notes): Yes Resp Symptoms (Recalled from RN notes): Yes Skin Symptoms (Recalled from RN notes): No MS Symptoms (Recalled from RN notes): No Functional Status (Recalled from RN notes): WNL History of Present Illness Provider Complaint: She states that for the past 3 weeks she has had sinus congestion, sinus pressure, ear pain, and a cough. Related Data Home Medications Medication Instructions Recorded Confirmed albuterol sulfate 90 mcg/actuation 2 puffs inhalation Q6H PRN 10/26/17 02/21/22 aerosol inhaler (ProAir HFA) Shortness Of Breath fluticasone propionate 50 2 spr inhalation DAILY ALLERGIES 10/26/17 02/21/22 mcg/actuation blister powder for inhalation (Flovent Diskus) gabapentin 300 mg capsule 300 mg PO BID Pain 10/26/17 02/21/22 indomethacin 25 mg capsule 25 mg PO TID Arthritis 10/26/17 02/21/22 morphine 15 mg tablet, crush 15 mg PO BID Pain 10/26/17 02/21/22 resistant, extended release (Arymo ER) multivitamin with folic acid 400 1 ea PO DAILY Supplement 10/26/17 02/21/22 mcg tablet (Tab-A-Liang) omeprazole 20 mg capsule,delayed 20 mg PO BID GERD 10/26/17 02/21/22 release diltiazem HCl 240 mg 240 mg PO DAILY High blood pressure 02/21/22 02/21/22 capsule,extended release 24 hr hydrochlorothiazide 25 mg tablet 25 mg PO DAILY High blood pressure 02/21/22 02/21/22 Previous Rx's Medication Instructions Recorded amoxicillin 875 mg-potassium 1 tab PO Q12H 7 days #14 tabs 02/21/22 clavulanate 125 mg tablet benzonatate 100 mg capsule 100 mg PO TIDP PRN Cough #30 caps 03/10/22 cefdinir 300 mg capsule 300 mg PO BID #20 caps 03/10/22 methylprednisolone 4 mg tablets in 4 mg PO DIRECTED #21 tabs 03/10/22 a dose pack amoxicillin 875 mg tablet 875 mg PO Q12H #20 tabs 09/13/22 methylprednisolone 4 mg tablets in 4 mg PO DIRECTED #21 tabs 09/13/22 a dose pack ondansetron 4 mg disintegrating 4 mg PO Q8H PRN Nausea #12 tabs 09/13/22 tablet cephalexin 500 mg tablet 500 mg PO BID 7 days #14 tabs 12/15/22 azithromycin 250 mg tablet 250 mg PO UD DOSE PK #6 tabs 06/16/23 (Zithromax) guaifenesin 600 mg tablet, 600 - 1,200 mg (1 - 2 x 600 mg) PO 06/16/23 extended release 12 hr (Mucinex) BIDP PRN Congestion #30 tabs methylprednisolone 4 mg tablets in 4 mg PO DIRECTED 6 days #21 tabs 06/16/23 a dose pack promethazine-DM 6.25 mg-15 mg/5 mL 5 ml PO Q6H PRN Cough #240 mL 06/16/23 oral syrup Allergies Allergy/AdvReac Type Severity Reaction Status Date / Time No Known Allergies Allergy Verified 03/10/22 12:55 Worker's Comp Is this a Worker's Comp case?: No [facility] Disclaimer: The information contained in this section may have been updated after the patient was seen, as this information can be updated by other users. Social History , [employer]) Smoking Status: Never smoker alcohol intake: never current occupational status: retired Travel in the last 8 weeks: None ROS Obtained: Yes All systems reviewed & no additional complaints except as documented Constitutional Constitutional: Reports poor appetite Eyes Eyes: Reports system reviewed and no additional complaints, except as documented ENT Ears, Nose, Mouth, and Throat: Reports as per HPI Cardiovascular Cardiovascular: Reports system reviewed and no additional complaints, except as documented and Denies chest pain Respiratory Respiratory: Denies shortness of breath, Denies chest congestion, Reports cough, Denies stridor and Denies wheezing Gastrointestinal Gastrointestingal: Reports system reviewed and no additional complaints, except as documented; Denies abdominal pain, diarrhea or vomiting Musculoskeletal Musculoskeletal: Reports system reviewed and no additional complaints, except as documented and Denies arthralgias Integumentary/Breasts Skin/Breast: Reports system reviewed and no additional complaints, except as documented and Denies rash Neurologic Neurologic: Denies paresthesias Allergic/Immunologic Allergic/Immunologic: Denies wheezing Physical Exam General General appearance: alert and in no apparent distress Eye Eye exam: Present normal appearance, PERRL and EOMI ENT ENT exam: Present mucous membranes moist and normal external ear exam Expanded ENT Exam External ear exam: Present normal external inspection TM/Canal exam: Bilateral TM: erythema and bulging Nose exam: Absent sinus tenderness Nasal speculum exam: Bilateral: normal Mouth exam: Present normal external inspection; Absent drooling Teeth exam: Present normal inspection Throat exam: Present tonsillar erythema and tonsillomegaly Neck Neck exam: Present normal inspection, full ROM and trachea midline; Absent tenderness, lymphadenopathy or thyromegaly Chest Chest inspection: Present normal inspection and symmetric chest wall rise; A bsent tenderness or rash Respiratory Respiratory exam: Present normal lung sounds bilaterally; Absent respiratory distress, wheezes, stridor or accessory muscle use Cardiovascular Cardiovascular exam: Present regular rate, normal rhythm and normal heart sounds Abdominal Exam Abdominal exam: Present soft; Absent distention, tenderness, guarding, rebound or rigidity Extremities Exam Extremities exam: Present normal inspection, full ROM and normal capillary refill; Absent tenderness or calf tenderness Back Exam Back exam: Present normal inspection and full ROM; Absent tenderness Neurological Exam Neurological exam: Present alert and oriented X3 Psychiatric Psychiatric exam: Present normal affect and normal mood Skin Skin exam: Present warm, dry, intact and normal color Lymphatic Lymphatic Findings: no adenopathy Medical Decision Making Medical Records Medical records reviewed: No I reviewed the patient's medical records. [place] Inquiry Pt receiving controlled substance: No Vital Signs: 06/16/23 15:30 Temperature 98.1 F Temperature Source Oral Pulse Rate [Right Brachial] 84 Respiratory Rate 19 Blood Pressure [Right Arm] 149/72 H Blood Pressure Mean [Right Arm] 97 Blood Pressure Source [Right Arm] Automatic Cuff Blood Pressure Position [Right Arm] Sitting 02 Sat by Pulse Oximetry 97 Oxygen Delivery Method Room Air
[2023-06-16 15:49] VITALS: BP 149/72; PULSE 84; RESP 19; TEMP 36.7; O2SAT 97
== END 2023-06-16 15:53 | disposition home or self-care (01) ==
PROVIDERS: Emergency Provider Nurse Practitioner Family
DX: J01.90 Acute sinusitis, unspecified (principal); R51.9 Headache, unspecified; H92.03 Otalgia, bilateral; R05.9 Cough, unspecified; R09.81 Nasal congestion
CPT/HCPCS: 99212; 99214; G0463

== ENCOUNTER 2024-10-31 15:00 | Outpatient (RCR) | payer OTHER, SELFPAY | END 2024-10-31 23:59 | disposition home or self-care (01) | LOC: PT 15:00 | PROVIDERS: Visit Provider Physician Assistant Surgical | DX: Z47.89 Encounter for other orthopedic aftercare (principal); Z96.652 Presence of left artificial knee joint | CPT/HCPCS: 97110; 97162 ==

== ENCOUNTER 2024-11-30 10:00 | Outpatient (RCR) | payer OTHER, MEDICARE, SELFPAY | END 2024-11-30 23:59 | disposition home or self-care (01) | LOC: PT 10:00 | PROVIDERS: Visit Provider Physician Assistant Surgical | DX: Z47.89 Encounter for other orthopedic aftercare (principal); Z96.652 Presence of left artificial knee joint | CPT/HCPCS: 97110 ==

== ENCOUNTER 2024-12-27 10:00 | Outpatient (RCR) | payer OTHER, MEDICARE, SELFPAY | END 2024-12-27 23:59 | disposition home or self-care (01) | LOC: PT 10:00 | PROVIDERS: Visit Provider Physician Assistant Surgical | DX: Z47.89 Encounter for other orthopedic aftercare (principal); Z96.652 Presence of left artificial knee joint | CPT/HCPCS: 97110; 97530 ==